=== PATIENT | female | born 1940 | race Caucasian/White ===

== ENCOUNTER 2022-01-08 09:05 | Inpatient (IN) ==
[2022-01-08] MEDS ORDERED: PIPERACILLIN/TAZOBACTAM 3,375 MG in SODIUM CHLORIDE 0.9% 100 ML IV STA (09:30)
[2022-01-08] MEDS ORDERED: SODIUM CHLORIDE 0.9% 1,000 ML IV STA (09:30)
[2022-01-08 10:05] LABS: Basophils % 0.4 % (0.0-0.8); Eosinophils # 0.1 10*3/uL (0.0-0.87); Eosinophils % 0.8 % (0.00-10.9); Hematocrit 35.5 VOL% (35.7-47.0); Hemoglobin 12.4 GM/DL (12.0-16.0); Immature Granulocytes % 0.6 %; Immature Granulocytes Absolute 0.05 #; Lymphocytes # 0.9 10*3/uL (1.4-4.0); Lymphocytes % 10.5 % (21.3-54.2); Mean Corpuscular HGB Conc 34.9 GM/DL (32-36); Mean Corpuscular Volume 94.2 FL (87-102); Monocytes % 10.5 % (1.7-12.7); Neutrophils % 77.2 % (38.7-73.9); Platelet Count 264 T/CUMM (130-400); Red Blood Count 3.77 MC/CUMM (3.8-5.5); Red Cell Distribution Width 12.3 % (9.3-17.3); White Blood Count 8.3 T/CUMM (4-12)
[2022-01-08 10:13] LABS: Bilirubin,Urine Negative (Negative); Blood, Urine Trace mg/dL (Negative); Glucose,Urine (UA) Negative (Negative); Ketones,Urine Negative (Negative); Nitrite,Urine Negative (Negative); Protein,Urine Trace mg/dL (Negative); RBC,Urine 6 /HPF (0-4); Squamous Epithelial Cell,Urine Occasional /HPF (0-10); Urine Appearance Clear (Clear); Urine Color Yellow (Yellow); Urine Specific Gravity 1.015 (1.001-1.035); Urine pH 6.5 (4.5-8.0)
[2022-01-08 10:27] LABS: Albumin 2.9 G/DL (3.4-5.0); Bilirubin,Total 0.8 MG/DL (0.20-1.00); Calcium 9.2 MG/DL (8.5-10.1); Osmolality,Calculated 250.6 MOS/KG (273-304); Potassium 3.6 MMOL/L (3.5-5.1); Total Protein 7.2 G/DL (6.4-8.2)
[2022-01-08] MEDS ORDERED: ONDANSETRON 4 MG/2 ML VIAL IV PRN (12:45)
[2022-01-08] MEDS ORDERED: ACETAMINOPHEN 325 MG TABLET PO PRN (12:45)
[2022-01-08] MEDS: SODIUM CHLORIDE 0.9% 1,000 ML IV SCH (13:11)
[2022-01-08] MEDS: ENOXAPARIN 40 MG/0.4 ML SYRINGE SUBCUT SCH (15:56)
[2022-01-08] MEDS: PIPERACILLIN/TAZOBACTAM 3,375 MG in SODIUM CHLORIDE 0.9% 100 ML IV SCH (17:54)
[2022-01-08 19:41] LABS: Calcium 8.2 MG/DL (8.5-10.1); Osmolality,Calculated 270.5 MOS/KG (273-304); Potassium 3.7 MMOL/L (3.5-5.1)
[2022-01-08] MEDS: TAMSULOSIN 0.4 MG CAPSULE PO SCH (20:13)
[2022-01-08] MEDS: DOCUSATE SODIUM 100 MG CAPSULE PO SCH (20:13)
[2022-01-08] MEDS ORDERED: MAGNESIUM SULF RIDER 2 GM/50 ML PREMIX IV PRN (20:21)
[2022-01-08] MEDS ORDERED: MAGNESIUM SULF RIDER 4 GM/100 ML PREMIX IV PRN (20:21)
[2022-01-09] MEDS: PIPERACILLIN/TAZOBACTAM 3,375 MG in SODIUM CHLORIDE 0.9% 100 ML IV SCH ×3 (01:25→17:19)
[2022-01-09] MEDS: SODIUM CHLORIDE 0.9% 1,000 ML IV SCH ×4 (01:32→22:32)
[2022-01-09 05:49] LABS: Calcium 8.2 MG/DL (8.5-10.1); Potassium 3.1 MMOL/L (3.5-5.1)
[2022-01-09] MEDS ORDERED: LOSARTAN 100 MG PO SCH (08:00)
[2022-01-09] MEDS ORDERED: NEBIVOLOL 10 MG TABLET PO SCH (09:00)
[2022-01-09] MEDS ORDERED: amLODIPine 5 MG TABLET PO SCH (09:00)
[2022-01-09] MEDS: DOCUSATE SODIUM 100 MG CAPSULE PO SCH ×2 (09:11→20:54)
[2022-01-09] MEDS: PANTOPRAZOLE 40 MG TABLET PO SCH (09:12)
[2022-01-09] MEDS: ENOXAPARIN 40 MG/0.4 ML SYRINGE SUBCUT SCH (20:54)
[2022-01-09] MEDS: TAMSULOSIN 0.4 MG CAPSULE PO SCH (20:54)
[2022-01-10] MEDS: PIPERACILLIN/TAZOBACTAM 3,375 MG in SODIUM CHLORIDE 0.9% 100 ML IV SCH ×3 (01:32→17:02)
[2022-01-10] MEDS: SODIUM CHLORIDE 0.9% 1,000 ML IV SCH ×4 (01:34→20:42)
[2022-01-10] MEDS: DOCUSATE SODIUM 100 MG CAPSULE PO SCH ×2 (09:25→20:39)
[2022-01-10] MEDS: FUROSEMIDE 20 MG TABLET PO SCH (09:25)
[2022-01-10] MEDS: PANTOPRAZOLE 40 MG TABLET PO SCH (09:25)
[2022-01-10] MEDS: POTASSIUM CHLORIDE 20 MEQ TABLET PO PRN ×4 (10:36→17:02)
[2022-01-10] MEDS: NEBIVOLOL 10 MG TABLET PO SCH (10:43)
[2022-01-10] MEDS: APIXABAN 5 MG TABLET PO SCH ×3 (10:43→21:53)
[2022-01-10] MEDS: TAMSULOSIN 0.4 MG CAPSULE PO SCH (20:39)
[2022-01-11] MEDS: PIPERACILLIN/TAZOBACTAM 3,375 MG in SODIUM CHLORIDE 0.9% 100 ML IV SCH ×2 (00:32→10:12)
[2022-01-11] MEDS: APIXABAN 5 MG TABLET PO SCH (10:11)
[2022-01-11] MEDS: DOCUSATE SODIUM 100 MG CAPSULE PO SCH (10:11)
[2022-01-11] MEDS: NEBIVOLOL 10 MG TABLET PO SCH (10:11)
[2022-01-11] MEDS: FUROSEMIDE 20 MG TABLET PO SCH (10:11)
[2022-01-11] MEDS: PANTOPRAZOLE 40 MG TABLET PO SCH (10:12)
[2022-01-11 10:34] VITALS: BP 179/91
== END 2022-01-11 10:34 | disposition home or self-care (01) | DRG 392 ==
LOC: N.ED 09:05 → N.EDINP 12:45 → N.5E 15:43
PROVIDERS: ADMIT Family Medicine; ATTEND Family Medicine